=== PATIENT | female | born 2000 | race Two or more races ===

== ENCOUNTER → 2021-03-04 15:00 | Outpatient (CLI) | payer OTHER | END | disposition home or self-care (01) | LOC: PPH VACUNA 15:00 | DX: Z23 Encounter for immunization (principal) ==

== ENCOUNTER → 2021-03-25 16:44 | Outpatient (CLI) | payer OTHER | END | disposition home or self-care (01) | LOC: PPH VACUNA 16:44 | DX: Z23 Encounter for immunization (principal) ==